=== PATIENT | female | born 1995 | race Caucasian/White ===

== ENCOUNTER 2020-03-06 20:51 | Inpatient (IN) | payer OTHER ==
--- NOTE | 2020-03-06 21:19 | ED Physician Documentation ---
History of Present Illness - Stated complaint Stated Complaint: RT LEG PX/SWELLING - Chief complaint Chief Complaint: Ext Problem - History obtained from History obtained from: Patient (24-year-old female with right lower extremity swelling on control pills had a recent long flight denies hemoptysis or shortness of breath or any history of pulmonary embolism or DVT denies recent surgeries or any trauma. Denies any family history of PE or DVT.) Review of Systems Constitutional: reports: Reviewed and negative Eyes: reports: Reviewed and negative Ears: reports: Reviewed and negative Nose: reports: Reviewed and negative Throat: reports: Reviewed and negative Cardiac: reports: Reviewed and negative Respiratory: reports: Reviewed and negative GI: reports: Reviewed and negative : reports: Reviewed and negative Skin: reports: Reviewed and negative Musculoskeletal: reports: Extremity pain, Extremity swelling Neurologic: reports: Reviewed and negative Psychiatric: reports: Reviewed and negative Endocrine: reports: Reviewed and negative Immunocompromised: reports: Reviewed and negative PD PAST MEDICAL HISTORY - Past Medical History Past Medical History: Yes Cardiovascular: None Respiratory: None Neuro: None Endocrine/Autoimmune: Other GI: None 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 - Past Surgical History Past Surgical History: Yes Ortho: ACL reconstruction - Present Medications Home Medications: Ambulatory Orders Medication Instructions Recorded Confirmed Levetiracetam [Keppra] 500 mg PO DAILY 03/07/20 03/07/20 Levetiracetam [Keppra] 750 mg PO QPM 03/07/20 03/07/20 - Allergies Allergies/Adverse Reactions: Allergies Allergy/AdvReac Type Severity Reaction Status Date / Time No Known Drug Allergies Allergy Verified 03/06/20 21:02 - Social History Does the pt smoke?: No Smoking Status: Never smoker Does the pt drink ETOH?: No Does the pt have substance abuse?: No - Immunizations Immunizations are current?: Yes - POLST Patient has POLST: No PD ED PE NORMAL - Vitals Vital signs reviewed: Yes - General General: Alert and oriented X 3, No acute distress - HEENT HEENT: PERRL - Neck Neck: Supple, no meningeal sign - Cardiac Cardiac: RRR, No murmur - Respiratory Respiratory: Clear bilaterally - Abdomen Abdomen: Normal bowel sounds, Soft, Non tender, Non distended - Derm Derm: Warm and dry - Extremities Extremities: No deformity, Other (Positive for tenderness in the right calf positive for swelling diffusely of the right lower extremity with 1+ edema. Cap refill less than 2 seconds neurovascular intact compartments and soft palpable DP and PT pulses that are 2+ and symmetric.) - Neuro Neuro: Alert and oriented X 3 - Psych Psych: Normal mood, Normal affect Results - Vitals Vitals: Vital Signs - 24 hr 03/06/20 03/06/20 03/06/20 20:59 21:27 21:50 Temperature 36.7 C Heart Rate 64 Respiratory 17 16 16 Rate Blood Pressure 130/85 H O2 Saturation 100 03/06/20 03/06/20 03/06/20 22:40 23:09 23:13 Temperature Heart Rate 79 Respiratory 16 16 16 Rate Blood Pressure 116/77 O2 Saturation 99 Oxygen O2 Source Room air - EKG (time done) 22:41 Rate: Other (no stemi) - Labs Labs: Laboratory Tests 03/06/20 03/06/20 03/06/20 23:00 23:00 23:00 WBC 12.3 H RBC 3.96 L Hgb 13.3 Hct 37.8 MCV 95.5 MCH 33.6 H MCHC 35.2 RDW 12.9 Plt Count 190 MPV 9.1 Neut # (Auto) 9.1 H Lymph # (Auto) 1.9 Stark # (Auto) 0.9 Eos # (Auto) 0.2 Baso # (Auto) 0.1 Absolute Nucleated RBC 0.00 Nucleated RBC % 0.0 PT 15.1 H INR 1.3 H APTT 24.8 L Anti-Xa Level Sodium 135 Potassium 3.3 L Chloride 101 Carbon Dioxide 24 Anion Gap 10.0 BUN 10 Creatinine 0.8 Estimated GFR (MDRD) 90 Glucose 85 Calcium 9.1 Total Bilirubin 0.9 AST 20 ALT 22 Alkaline Phosphatase 54 Troponin I High Sens Total Protein 9.1 H Albumin 3.9 Globulin 5.2 H Albumin/Globulin Ratio 0.8 L Lipase 20 L 03/06/20 03/06/20 23:00 23:00 WBC RBC Hgb Hct MCV MCH MCHC RDW Plt Count MPV Neut # (Auto) Lymph # (Auto) Stark # (Auto) Eos # (Auto) Baso # (Auto) Absolute Nucleated RBC Nucleated RBC % PT INR APTT Anti-Xa Level 0.1 Sodium Potassium Chloride Carbon Dioxide Anion Gap BUN Creatinine Estimated GFR (MDRD) Glucose Calcium Total Bilirubin AST ALT Alkaline Phosphatase Troponin I High Sens 3.1 Total Protein Albumin Globulin Albumin/Globulin Ratio Lipase PD MEDICAL DECISION MAKING - ED course Complexity details: reviewed results, re-evaluated patient, considered differential (dvt.), d/w patient, d/w family, d/w regulatory services consultant (Discussed with interventional radiology at [facility] in [place] they recommend IV heparin and close observation.), other - Consults Consults: Discussed case with (dr. higuera interventional radiologist at [facility]. recommends admit to [facility] for IV heparin. ) Departure - Departure Disposition: [facility] DC/Xfer Clinical Impression: DVT (deep venous thrombosis) Qualifiers: DVT location: lower extremity Affected thrombotic vein of extremity: iliac Chronicity: acute Laterality: right Qualified Code(s): I82.421 - Acute embolism and thrombosis of right iliac vein Condition: Stable Discharge Date/Time: 03/06/20 23:45
[2020-03-06 23:14] LABS: BASOPHILS # (AUTO) 0.1 10^3/uL (0.0-0.1); BASOPHILS % (AUTO) 0.7 %; EOSINOPHILS # (AUTO) 0.2 10^3/uL (0.0-0.7); EOSINOPHILS % (AUTO) 1.5 %; HGB - HEMOGLOBIN 13.3 g/dL (12.0-16.0); LYMPHOCYTES # (AUTO) 1.9 10^3/uL (1.5-3.5); LYMPHOCYTES % (AUTO) 15.8 %; MEAN CORPUSCULAR HEMOGLOBIN 33.6 pg (27.0-31.0); MEAN CORPUSCULAR HGB CONC 35.2 g/dL (32.0-36.0); MEAN CORPUSCULAR VOLUME 95.5 fL (81.0-99.0); MEAN PLATELET VOLUME 9.1 fL (7.9-10.8); MONOCYTES # (AUTO) 0.9 10^3/uL (0.0-1.0); NEUTROPHILS # (AUTO) 9.1 10^3/uL (1.5-6.6); NEUTROPHILS % (AUTO) 74.3 %; PLT - PLATELET COUNT 190 10^3/uL (130-450); RED BLOOD COUNT 3.96 10^6/uL (4.20-5.40); RED CELL DISTRIBUTION WIDTH 12.9 % (12.0-15.0); WHITE BLOOD COUNT 12.3 x10^3/uL (4.8-10.8)
[2020-03-06 23:28] LABS: INR 1.3 (0.8-1.2); PT - PROTHROMBIN TIME 15.1 secs (9.9-12.6)
[2020-03-06] MEDS ORDERED: ONDANSETRON 4 MG/2 ML VIAL IVP PRN (23:28)
[2020-03-06] MEDS ORDERED: SODIUM CHLORIDE FLUSH 0.9% 10 ML SYRINGE IVP PRN (23:28)
[2020-03-06 23:35] LABS: PARTIAL THROMBOPLASTIN TIME 24.8 secs (24.9-33.3)
--- NOTE | 2020-03-06 23:37 | HISTORY & PHYSICAL EXAMINATION ---
Chief Complaint - Chief Complaint Chief Complaint: Right leg swelling and pain. History of Present Illness - Admitted From Admitted From:: Home - History Obtained From Records Reviewed: Yes History obtained from: Patient, ER Physician, EMR - History of Present Illness HPI Comment/Other: This is a 24-year-old female with a past medical history significant for epilepsy on Keppra who presents today complaining of right leg pain and swelling. She noted that this morning she developed right hip pain and noticed that her leg progressively became more swollen and painful throughout the day. She is visiting from [place] and flew here this past . She did connect in [place]. She reports no numbness or tingling in her lower extremity. She denies any chest pain, dyspnea, palpitations. She reports no prior history of DVT. She believes her grandfather had a DVT but does not believe her parents have. She is on on OCP, Lillow, for control which she has been taking for numerous years now. She is a non-smoker. She reports no prior history of DVT. She did have ACL reconstruction about 3 years ago in her right knee. She re ports being diagnosed with pyelonephritis 1 week ago and she is currently taking Keflex and she has 1 more week of treatment. In the emerge department, she was found to be afebrile temperature of 36.7 C. Her heart rate was 64. Her blood pressure was 130/85. She was not tachypneic and saturating 100% on room air. He underwent a Doppler of the right lower extremity which showed extensive DVT from the right iliac distally. The emergency department provider did speak with intervention radiology who recommended 48 hours of heparin and if there is no improvement then to transfer to higher level of care for further management. Given the above findings, medicine was consulted for admission. 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 Her parents and siblings are healthy. Social History Notes: She is visiting from [place], [place]. She denies any history of smoking, alcohol, drug use. - Substance History Use: Uses substance without health or social issues: NONE - POLST Patient has POLST: No Meds/Allgy - Home Medications Home Medications: Ambulatory Orders Medication Instructions Recorded Confirmed Cephalexin [Keflex] 500 mg PO BID 03/07/20 03/07/20 Levetiracetam [Keppra] 500 mg PO DAILY 03/07/20 03/07/20 Levetiracetam [Keppra] 750 mg PO QPM 03/07/20 03/07/20 Levonorgestrel-Ethin Estradiol 1 each PO DAILY 03/07/20 03/07/20 [Lillow-28 Tablet] - Allergies Allergies/Adverse Reactions: Allergies Allergy/AdvReac Type Severity Reaction Status Date / Time No Known Drug Allergies Allergy Verified 03/06/20 21:02 Review of Systems - Constitutional Constitutional: denies: Fatigue, Fever, Chills, Weakness, Poor appetite - Ears, Nose & Throat Ears, Nose & Throat: denies: Nasal discharge, Nasal congestion, Postnasal d rainage, Sore throat - Cardiovascular Cariovascular: reports: Edema. denies: Palpitations, Chest pain, Exertional dyspnea, Decr. exercise tolerance - Respiratory Respiratory: denies: Cough, SOB at rest, SOB with exertion - Gastrointestinal Gastrointestinal: denies: Abdominal pain, Nausea, Vomiting - Genitourinary Genitourinary: denies: Dysuria, Frequency, Urgency, Hematuria - Musculoskeletal Musculoskeletal: reports: Muscle pain - Integumentary Integumentary: denies: Rash - Neurological Neurological: denies: General weakness, Focal weakness, Numbness - Hematologic/Lymphatic Hematologic/Lymphatic: denies: Anemia, Bleeding tendencies - All Other Systems All Other Systems: reports: Reviewed and negative Prior Level of Functionality: She is independent with her ADL's. Exam - Vital Signs Reviewed Vital Signs: Yes Vital Signs: Vital Signs x48h Temp Pulse Resp BP Pulse Ox 03/06/20 23:13 79 16 116/77 99 03/06/20 23:09 16 03/06/20 22:40 16 03/06/20 21:50 16 03/06/20 21:27 16 03/06/20 20:59 36.7 C 64 17 130/85 H 100 - Physical Exam General Appearance: positive: No acute distress, Alert Eyes Bilateral: positive: Normal inspection, Conjunctivae nml ENT: positive: ENT inspection nml Neck: positive: Nml inspection Respiratory: positive: No respiratory distress. negative: Wheezes, Rales Cardiovascular: positive: Regular rate & rhythm, No murmur. negative: Tachycardia, Bradycardia, Systolic murmur Abdomen: positive: Non-tender, No distention. negative: Tenderness, Guarding, Rebound Skin: positive: Warm, Dry Extremities: positive: Pedal edema (She has trace pitting edema in her right lower extremity throughout the leg. Her right lower extremity is larger compared to the left. She does have mild calf tenderness. The right lower extremity is also warm to touch.), Calf tenderness, Other (No evidence of phlegmasia cerulea dolens.) Neurologic/Psychiatric: positive: Oriented x3, Motor nml. negative: Disoriented to person, Disoriented to place, Disoriented to time Conclusion/Plan - Problem List (1) Deep vein thrombosis (DVT) of right lower extremity Conclusion/Plan: She has extensive DVT in he right lower extremity seen from the right iliac vein to the proximal right posterior tibial vein. She has risk factors including control use and recent travel given her flight from [place]. The emergency department provider spoke with interventional radiology who recommended 48 hours of IV heparin and if there is no improvement with that to transfer to higher level of care for further evaluation. There is currently low suspicion for pulmonary embolism given she is not hypoxic or tachycardic. Her troponin is also normal. We will treat her empirically with IV heparin. No SCDs. Pain control with Tylenol and oxycodone as needed. She will need hypercoagulable work-up on outpatient basis. Qualifiers: Chronicity: acute (2) Epilepsy Conclusion/Plan: Stable. We will continue her home dose of Keppra. (3) Pyelonephritis Conclusion/Plan: She was probably diagnosed with pyelonephritis 1 week ago and is on Keflex which we will continue. - Lab Results Lab results reviewed: Yes Fish Bones: 03/06/20 23:00 03/06/20 23:00 - Diagnostic Imaging Results Diagnostic Imaging Results: positive: Prelim report reviewed Core Measures - Anticipated LOS I expect patient to be DC'd or transferred within 96 hours.: Yes - Issues Hospital Issues and Management Plan: 24-year-old female present with right lower extremity pain and edema found to have extensive right lower extremity DVT. Will admit for for 8 hours of IV heparin. If she does not improve with anticoagulation, will need transfer to higher level of care for possible localized thrombolytics. - DVT/VTE - Prophylaxis VTE/DVT Device ordered at admit?: No Not Ordered - Medical Reason: Contraindicated VTE/DVT Prophylaxis med ordered at admit?: Yes
[2020-03-06 23:49] LABS: ALBUMIN 3.9 g/dL (3.2-5.5); ALBUMIN/GLOBULIN RATIO 0.8 (1.0-2.2); BILIRUBIN,TOTAL 0.9 mg/dL (0.2-1.0); CALCIUM 9.1 mg/dL (8.5-10.3); CREATININE 0.8 mg/dL (0.4-1.0); TOTAL PROTEIN 9.1 g/dL (6.7-8.2)
[2020-03-07] MEDS ORDERED: levETIRAcetam 250 MG TABLET PO STA (00:06)
[2020-03-07] MEDS ORDERED: POTASSIUM CHLORIDE 20 MEQ TABLET PO ONE (00:10)
[2020-03-07] MEDS: oxyCODONE 5 MG TABLET PO PRN ×5 (00:37→22:15)
[2020-03-07] MEDS: HEPARIN 25000UNITS/500ML (D5W) 25,000 UNIT/500 ML BAG IV SCH (01:47)
[2020-03-07] MEDS: SODIUM CHLORIDE FLUSH 0.9% 10 ML SYRINGE IVP SCH ×3 (01:52→17:16)
[2020-03-07] MEDS ORDERED: cephALEXin 250 MG CAPSULE PO SCH (06:00)
--- NOTE | 2020-03-07 07:36 | PHARMACY PROGRESS NOTE ---
- Best Possible Medication History Admit Date and Time: 03/06/20 8869 Processed by: Pharmacy Medication History completed: Yes Secondary Source(s): Pharmacy records, Insurance records As the person ultimately responsible for medication therapy, providers are able to order a medication from an existing home medication list in [facility] via the "Reconcile Routine" prior to Confirmation of that medication by direct support staff. Such practice is discouraged except when the physician, in their clinical judgment, deems that a medical need exists for a medication without regard to previous use.
[2020-03-07] MEDS ORDERED: cephALEXin 250 MG CAPSULE PO ONE (08:00)
[2020-03-07 08:15] LABS: BASOPHILS # (AUTO) 0.1 10^3/uL (0.0-0.1); BASOPHILS % (AUTO) 0.6 %; EOSINOPHILS # (AUTO) 0.4 10^3/uL (0.0-0.7); EOSINOPHILS % (AUTO) 3.6 %; HGB - HEMOGLOBIN 11.5 g/dL (12.0-16.0); LYMPHOCYTES % (AUTO) 20.6 %; MEAN CORPUSCULAR HEMOGLOBIN 32.7 pg (27.0-31.0); MEAN CORPUSCULAR HGB CONC 33.8 g/dL (32.0-36.0); MEAN CORPUSCULAR VOLUME 96.6 fL (81.0-99.0); MEAN PLATELET VOLUME 9.1 fL (7.9-10.8); MONOCYTES # (AUTO) 0.7 10^3/uL (0.0-1.0); MONOCYTES % (AUTO) 7.6 %; NEUTROPHILS # (AUTO) 6.5 10^3/uL (1.5-6.6); NEUTROPHILS % (AUTO) 67.1 %; PLT - PLATELET COUNT 162 10^3/uL (130-450); RED BLOOD COUNT 3.52 10^6/uL (4.20-5.40); RED CELL DISTRIBUTION WIDTH 13.2 % (12.0-15.0); WHITE BLOOD COUNT 9.7 x10^3/uL (4.8-10.8)
[2020-03-07 08:26] LABS: CALCIUM 8.8 mg/dL (8.5-10.3); CREATININE 0.9 mg/dL (0.4-1.0); MAGNESIUM 1.8 mg/dL (1.7-2.8)
--- NOTE | 2020-03-07 08:49 | Ultrasound Report ---
PROCEDURE: Duplex Ext Veins Right INDICATIONS: right lower extremity pain and swelling TECHNIQUE: Real-time imaging, as well as color and pulse Doppler interrogation, were performed of the lower extr emity deep veins from the inguinal ligament to the popliteal fossa. COMPARISON: None. FINDINGS: Occlusive thrombus identified in the right common femoral vein, superficial femoral vein, p opliteal vein, and posterior tibial veins. Right common iliac vein contains occlusive thrombus. Addit ional thrombus identified in the greater saphenous vein of the superficial venous system. Color and p ulse Doppler absence normal phasic intraluminal flow. IMPRESSION: Abnormal study demonstrating extensive right lower extremity occlusive deep vein thrombo sis. Reviewed by: Noemi Zuniga MD, PhD on 03/07/2020 8:47 AM PDT Approved by: Noemi Zuniga MD, PhD on 03/07/2020 8:47 AM PDT Station ID: [id number]
--- NOTE | 2020-03-07 09:06 | XRAY Report ---
PROCEDURE: Chest 1 View X-Ray INDICATIONS: sob TECHNIQUE: One view of the chest was acquired. COMPARISON: None FINDINGS: Surgical changes and devices: None. Lungs and pleura: No pleural effusions or pneumothorax. Lungs are clear. Mediastinum: Mediastinal contours appear normal. Heart size is normal. Bones and chest wall: No suspicious bony lesions. Overlying soft tissues appear unremarkable. IMPRESSION: No acute cardiopulmonary disease process. Reviewed by: Noemi Zuniga MD, PhD on 03/07/2020 9:05 AM PDT Approved by: Noemi Zuniga MD, PhD on 03/07/2020 9:05 AM PDT Station ID: [id number]
[2020-03-07] MEDS: levETIRAcetam 250 MG TABLET PO SCH ×2 (09:10→20:17)
[2020-03-07 11:26] LABS: BILIRUBIN,URINE NEGATIVE (NEGATIVE); GLUCOSE, URINE (UA) NEGATIVE (NEGATIVE); KETONES,URINE (UA) NEGATIVE (NEGATIVE); LEUKOCYTE ESTERASE, URINE NEGATIVE (NEGATIVE); NITRITE,URINE NEGATIVE (NEGATIVE); OCCULT BLOOD,URINE NEGATIVE (NEGATIVE); PROTEIN,URINE NEGATIVE (NEGATIVE); UROBILINOGEN,URINE 1 (NORMAL) E.U./dL (NORMAL)
[2020-03-07 11:28] LABS: CLARITY,URINE CLEAR (CLEAR); HCG UR QUAL NEGATIVE
--- NOTE | 2020-03-07 11:50 | PROVIDER PROGRESS NOTE ---
Subjective - Prog Note Date Prog Note Date: 03/07/20 Prog Note Time: 11:49 - Subjective Pt reports feeling: No change Subjective: she has no chest pain, sob. we discussed case and recommendations. all questions answered. Current Medications - Current Medications Current Medications: Active Medications Acetaminophen (Tylenol) 650 mg PO Q4HR PRN PRN Reason: Pain 1 to 4 Cephalexin (Keflex) 500 mg PO BID [facility] Heparin Sodium (Porcine) () 1,450 unit 25 unit/kg (1450 unit) IVP Q6H PRN PRN Reason: ANTI-XA < 0.2 Heparin Sodium/Dextrose () 25,000 unit in 500 mls @ 17 mls/hr IV .[id number] [facility]; Protocol Last Admin: 03/07/20 01:47 Dose: 17.6 mls/hr Documented by: Levetiracetam (Keppra) 500 mg PO DAILY [facility] Last Admin: 03/07/20 09:10 Dose: 500 mg Documented by: Levetiracetam (Keppra) 750 mg PO QPM [facility] Ondansetron HCl (Zofran Inj) 4 mg IVP Q6HR PRN PRN Reason: Nausea / Vomiting Oxycodone HCl (Roxicodone) 5 mg PO Q4HR PRN PRN Reason: Pain 5 to 7 Last Admin: 03/07/20 11:07 Dose: 5 mg Documented by: Sodium Chloride (Normal Saline Flush 0.9%) 10 ml IVP PRN PRN PRN Reason: NEEDED PER PROVIDER ORDERS Sodium Chloride (Normal Saline Flush 0.9%) 10 ml IVP 0100,0900,1700 [facility] Last Admin: 03/07/20 10:32 Dose: Not Given Documented by: Cephalexin [Keflex] 500 mg PO BID 03/07/20 Levetiracetam [Keppra] 500 mg PO DAILY 03/07/20 Levetiracetam [Keppra] 750 mg PO QPM 03/07/20 Levonorgestrel-Ethin Estradiol [Lillow-28 Tablet] 1 each PO DAILY 03/07/20 Objective - Vital Signs/Intake & Output Reviewed Vital Signs: Yes Vital Signs: Vital Signs x48h Temp Pulse Resp BP Pulse Ox 03/07/20 08:10 36.8 C 77 14 133/89 H 97 07/27/20 04:53 36.6 C 91 20 113/63 97 Intake & Output: Intake & Output 03/04/20 03/05/20 03/06/20 03/07/20 23:59 23:59 23:59 23:59 Intake Total 500 Balance 500 - Objective General Appearance: positive: No acute distress, Alert Eyes Bilateral: positive: PERRL, EOMI ENT: positive: Pharynx nml Respiratory: positive: Chest non-tender. negative: Wheezes, Rales, Rhonchi Cardiovascular: positive: Regular rate & rhythm. negative: Systolic murmur, Gallop/S4, Friction rub Abdomen: positive: Non-tender, No organomegaly, Nml bowel sounds, No distention Skin: positive: Warm, Dry Neurologic/Psychiatric: positive: Oriented x3, CN's nml (2-12), Motor nml, Sensation nml - Lab Results Fish Bones: 03/07/20 08:10 03/07/20 08:10 Other Labs: Lab Results x24hrs 03/07/20 03/07/20 03/07/20 Range/Units 10:55 08:10 08:10 WBC 9.7 (4.8-10.8) x10^3/uL RBC 3.52 L (4.20-5.40) 10^6/uL Hgb 11.5 L (12.0-16.0) g/dL Hct 34.0 L (37.0-47.0) % MCV 96.6 (81.0-99.0) fL MCH 32.7 H (27.0-31.0) pg MCHC 33.8 (32.0-36.0) g/dL RDW 13.2 (12.0-15.0) % Plt Count 162 (130-450) 10^3/uL MPV 9.1 (7.9-10.8) fL Neut # (Auto) 6.5 (1.5-6.6) 10^3/uL Lymph # (Auto) 2.0 (1.5-3.5) 10^3/uL Sequoyah # (Auto) 0.7 (0.0-1.0) 10^3/uL Eos # (Auto) 0.4 (0.0-0.7) 10^3/uL Baso # (Auto) 0.1 (0.0-0.1) 10^3/uL Absolute Nucleated RBC 0.00 x10^3/uL Nucleated RBC % 0.0 /100WBC PT (9.9-12.6) secs INR (0.8-1.2) APTT (24.9-33.3) secs Anti-Xa Level ( - 0.7) U/mL Sodium 135 (135-145) mmol/L Potassium 3.3 L (3.5-5.0) mmol/L Chloride 101 (101-111) mmol/L Carbon Dioxide 25 (21-32) mmol/L Anion Gap 9.0 (6-13) BUN 13 (6-20) mg/dL Creatinine 0.9 (0.4-1.0) mg/dL Estimated GFR (MDRD) 78 L (>89) Glucose 117 H (70-100) mg/dL Calcium 8.8 (8.5-10.3) mg/dL Magnesium 1.8 (1.7-2.8) mg/dL Total Bilirubin (0.2-1.0) mg/dL AST (10-42) IU/L ALT (10-60) IU/L Alkaline Phosphatase (42-121) IU/L Troponin I High Sens (2.3-14.8) ng/L Total Protein (6.7-8.2) g/dL Albumin (3.2-5.5) g/dL Globulin (2.1-4.2) g/dL Albumin/Globulin Ratio (1.0-2.2) Lipase (22-51) U/L Urine Color DARK YELLOW Urine Clarity CLEAR (CLEAR) Urine pH 6.0 (5.0-7.5) PH Ur Specific [place] >=1.030 H (1.002-1.030) Urine Protein NEGATIVE (NEGATIVE) mg/dL Urine Glucose (UA) NEGATIVE (NEGATIVE) mg/dL Urine Ketones NEGATIVE (NEGATIVE) mg/dL Urine Occult Blood NEGATIVE (NEGATIVE) Urine Nitrite NEGATIVE (NEGATIVE) Urine Bilirubin NEGATIVE (NEGATIVE) Urine Urobilinogen 1 (NORMAL) (NORMAL) E.U./dL Ur Leukocyte Esterase NEGATIVE (NEGATIVE) Ur Microscopic Review NOT INDICATED Urine Culture Comments NOT INDICATED Urine HCG, Qual NEGATIVE 03/07/20 03/06/20 03/06/20 Range/Units 08:10 23:00 23:00 WBC (4.8-10.8) x10^3/uL RBC (4.20-5.40) 10^6/uL Hgb (12.0-16.0) g/dL Hct (37.0-47.0) % MCV (81.0-99.0) fL MCH (27.0-31.0) pg MCHC (32.0-36.0) g/dL RDW (12.0-15.0) % Plt Count (130-450) 10^3/uL MPV (7.9-10.8) fL Neut # (Auto) (1.5-6.6) 10^3/uL Lymph # (Auto) (1.5-3.5) 10^3/uL Sequoyah # (Auto) (0.0-1.0) 10^3/uL Eos # (Auto) (0.0-0.7) 10^3/uL Baso # (Auto) (0.0-0.1) 10^3/uL Absolute Nucleated RBC x10^3/uL Nucleated RBC % /100WBC PT (9.9-12.6) secs INR (0.8-1.2) APTT (24.9-33.3) secs Anti-Xa Level 0.3 0.1 ( - 0.7) U/mL Sodium (135-145) mmol/L Potassium (3.5-5.0) mmol/L Chloride (101-111) mmol/L Carbon Dioxide (21-32) mmol/L Anion Gap (6-13) BUN (6-20) mg/dL Creatinine (0.4-1.0) mg/dL Estimated GFR (MDRD) (>89) Glucose (70-100) mg/dL Calcium (8.5-10.3) mg/dL Magnesium (1.7-2.8) mg/dL Total Bilirubin (0.2-1.0) mg/dL AST (10-42) IU/L ALT (10-60) IU/L Alkaline Phosphatase (42-121) IU/L Troponin I High Sens 3.1 (2.3-14.8) ng/L Total Protein (6.7-8.2) g/dL Albumin (3.2-5.5) g/dL Globulin (2.1-4.2) g/dL Albumin/Globulin Ratio (1.0-2.2) Lipase (22-51) U/L Urine Color Urine Clarity (CLEAR) Urine pH (5.0-7.5) PH Ur Specific [place] (1.002-1.030) Urine Protein (NEGATIVE) mg/dL Urine Glucose (UA) (NEGATIVE) mg/dL Urine Ketones (NEGATIVE) mg/dL Urine Occult Blood (NEGATIVE) Urine Nitrite (NEGATIVE) Urine Bilirubin (NEGATIVE) Urine Urobilinogen (NORMAL) E.U./dL Ur Leukocyte Esterase (NEGATIVE) Ur Microscopic Review Urine Culture Comments Urine HCG, Qual 03/06/20 03/06/20 03/06/20 Range/Units 23:00 23:00 23:00 WBC 12.3 H (4.8-10.8) x10^3/uL RBC 3.96 L (4.20-5.40) 10^6/uL Hgb 13.3 (12.0-16.0) g/dL Hct 37.8 (37.0-47.0) % MCV 95.5 (81.0-99.0) fL MCH 33.6 H (27.0-31.0) pg MCHC 35.2 (32.0-36.0) g/dL RDW 12.9 (12.0-15.0) % Plt Count 190 (130-450) 10^3/uL MPV 9.1 (7.9-10.8) fL Neut # (Auto) 9.1 H (1.5-6.6) 10^3/uL Lymph # (Auto) 1.9 (1.5-3.5) 10^3/uL [place] # (Auto) 0.9 (0.0-1.0) 10^3/uL Eos # (Auto) 0.2 (0.0-0.7) 10^3/uL Baso # (Auto) 0.1 (0.0-0.1) 10^3/uL Absolute Nucleated RBC 0.00 x10^3/uL Nucleated RBC % 0.0 /100WBC PT 15.1 H (9.9-12.6) secs INR 1.3 H (0.8-1.2) APTT 24.8 L (24.9-33.3) secs Anti-Xa Level ( - 0.7) U/mL Sodium 135 (135-145) mmol/L Potassium 3.3 L (3.5-5.0) mmol/L Chloride 101 (101-111) mmol/L Carbon Dioxide 24 (21-32) mmol/L Anion Gap 10.0 (6-13) BUN 10 (6-20) mg/dL Creatinine 0.8 (0.4-1.0) mg/dL Estimated GFR (MDRD) 90 (>89) Glucose 85 (70-100) mg/dL Calcium 9.1 (8.5-10.3) mg/dL Magnesium (1.7-2.8) mg/dL Total Bilirubin 0.9 (0.2-1.0) mg/dL AST 20 (10-42) IU/L ALT 22 (10-60) IU/L Alkaline Phosphatase 54 (42-121) IU/L Troponin I High Sens (2.3-14.8) ng/L Total Protein 9.1 H (6.7-8.2) g/dL Albumin 3.9 (3.2-5.5) g/dL Globulin 5.2 H (2.1-4.2) g/dL Albumin/Globulin Ratio 0.8 L (1.0-2.2) Lipase 20 L (22-51) U/L Urine Color Urine Clarity (CLEAR) Urine pH (5.0-7.5) PH Ur Specific [place] (1.002-1.030) Urine Protein (NEGATIVE) mg/dL Urine Glucose (UA) (NEGATIVE) mg/dL Urine Ketones (NEGATIVE) mg/dL Urine Occult Blood (NEGATIVE) Urine Nitrite (NEGATIVE) Urine Bilirubin (NEGATIVE) Urine Urobilinogen (NORMAL) E.U./dL Ur Leukocyte Esterase (NEGATIVE) Ur Microscopic Review Urine Culture Comments Urine HCG, Qual ABX Reporting Has patient been on IV antibiotics over the past 48 hours?: Yes Assessment/Plan - Problem List (1) Deep vein thrombosis (DVT) of right lower extremity Impression: She has extensive DVT in he right lower extremity seen from the right iliac vein to the proximal right posterior tibial vein. She has risk factors including control use and recent travel given her flight from [place]. The emergency department provider spoke with interventional radiology who recommended 48 hours of IV heparin and if there is no improvement with that to transfer to higher level of care for further evaluation. There is currently low suspicion for pulmonary embolism given she is not hypoxic or tachycardic. Her troponin is also normal. We will treat her empirically with IV heparin for 48 hours and then transition to po Eliquis. No SCDs. Pain control with Tylenol and oxycodone as needed. She will need hypercoagulable work-up on outpatient basis. All of this was discussed and she will followup with her PCP when she returns to [place]. Qualifiers: Chronicity: acute (2) Epilepsy Conclusion/Plan: Stable. We have continued her home dose of Keppra. (3) Pyelonephritis Conclusion/Plan: She was probably diagnosed with pyelonephritis 1 week ago and is on Keflex which we have continued.
[2020-03-07] MEDS: ACETAMINOPHEN 325 MG TABLET PO PRN ×2 (17:10→22:16)
[2020-03-07] MEDS: cephALEXin 250 MG CAPSULE PO SCH (20:16)
[2020-03-08] MEDS: SODIUM CHLORIDE FLUSH 0.9% 10 ML SYRINGE IVP SCH ×4 (00:54→23:30)
[2020-03-08] MEDS: ACETAMINOPHEN 325 MG TABLET PO PRN ×5 (02:20→20:22)
[2020-03-08] MEDS: oxyCODONE 5 MG TABLET PO PRN ×5 (02:20→20:23)
[2020-03-08] MEDS: HEPARIN 25000UNITS/500ML (D5W) 25,000 UNIT/500 ML BAG IV SCH (04:07)
[2020-03-08 04:15] LABS: BASOPHILS # (AUTO) 0.1 10^3/uL (0.0-0.1); BASOPHILS % (AUTO) 0.7 %; EOSINOPHILS # (AUTO) 0.4 10^3/uL (0.0-0.7); EOSINOPHILS % (AUTO) 3.6 %; HGB - HEMOGLOBIN 11.6 g/dL (12.0-16.0); LYMPHOCYTES # (AUTO) 2.2 10^3/uL (1.5-3.5); LYMPHOCYTES % (AUTO) 20.9 %; MEAN CORPUSCULAR VOLUME 97.2 fL (81.0-99.0); MEAN PLATELET VOLUME 9.4 fL (7.9-10.8); MONOCYTES # (AUTO) 0.8 10^3/uL (0.0-1.0); MONOCYTES % (AUTO) 7.3 %; NEUTROPHILS # (AUTO) 7.1 10^3/uL (1.5-6.6); NEUTROPHILS % (AUTO) 66.7 %; PLT - PLATELET COUNT 156 10^3/uL (130-450); RED BLOOD COUNT 3.51 10^6/uL (4.20-5.40); RED CELL DISTRIBUTION WIDTH 13.1 % (12.0-15.0); WHITE BLOOD COUNT 10.6 x10^3/uL (4.8-10.8)
[2020-03-08] MEDS ORDERED: POTASSIUM CHLORIDE 20 MEQ TABLET PO ONE (08:28)
[2020-03-08] MEDS ORDERED: cephALEXin 250 MG CAPSULE PO SCH (09:00)
--- NOTE | 2020-03-08 09:20 | PROVIDER PROGRESS NOTE ---
Subjective - Prog Note Date Prog Note Date: 03/08/20 - Subjective Pt reports feeling: Improved Subjective: Patient report she has no right lower extremity pain, she have no issue to walk, she ate all her breakfast, she denies any fever, chilly or chest pain or shortness of breath, cough. She reported she come to the hospital on the night of March 06. Heparin started on March 07, 27. Anti-Xa level is still not reached to therapeutic level yet, now it is 0.4, Therapeutic range is 0.5-1.2. Current Medications - Current Medications Current Medications: Active Medications Acetaminophen (Tylenol) 650 mg PO Q4HR PRN PRN Reason: Pain 1 to 4 Last Admin: 03/08/20 05:22 Dose: 650 mg Documented by: Cephalexin (Keflex) 500 mg PO BID [facility] Last Admin: 03/07/20 20:16 Dose: 500 mg Documented by: Heparin Sodium (Porcine) () 1,450 unit 25 unit/kg (1450 unit) IVP Q6H PRN PRN Reason: ANTI-XA < 0.2 Heparin Sodium/Dextrose () 25,000 unit in 500 mls @ 17 mls/hr IV .[id number] [facility]; Protocol Last Admin: 03/08/20 04:07 Dose: 22.2 mls/hr Documented by: Levetiracetam (Keppra) 500 mg PO DAILY [facility] Last Admin: 03/07/20 09:10 Dose: 500 mg Documented by: Levetiracetam (Keppra) 750 mg PO QPM [facility] Last Admin: 03/07/20 20:17 Dose: 750 mg Documented by: Ondansetron HCl (Zofran Inj) 4 mg IVP Q6HR PRN PRN Reason: Nausea / Vomiting Oxycodone HCl (Roxicodone) 5 mg PO Q4HR PRN PRN Reason: Pain 5 to 7 Last Admin: 03/08/20 05:22 Dose: 5 mg Documented by: Polyethylene Glycol (Miralax) 17 gm PO DAILY [facility] Sodium Chloride (Normal Saline Flush 0.9%) 10 ml IVP PRN PRN PRN Reason: NEEDED PER PROVIDER ORDERS Sodium Chloride (Normal Saline Flush 0.9%) 10 ml IVP 0100,0900,1700 [facility] Last Admin: 03/08/20 00:54 Dose: Not Given Documented by: Cephalexin [Keflex] 500 mg PO BID 03/07/20 Levetiracetam [Keppra] 500 mg PO DAILY 03/07/20 Levetiracetam [Keppra] 750 mg PO QPM 03/07/20 Levonorgestrel-Ethin Estradiol [Lillow-28 Tablet] 1 each PO DAILY 03/07/20 Objective - Vital Signs/Intake & Output Vital Signs: Vital Signs x48h Temp Pulse Resp BP Pulse Ox 03/08/20 07:55 37.1 C 81 16 104/49 L 95 03/08/20 04:33 37.2 C 90 16 111/61 92 Intake & Output: Intake & Output 03/05/20 03/06/20 03/07/20 03/08/20 23:59 23:59 23:59 23:59 Intake Total 1683.960 516.04 Balance 1683.960 516.04 - Objective General Appearance: positive: No acute distress, Alert. negative: Lethargic Eyes Bilateral: positive: Normal inspection, PERRL, No lid inflammation ENT: positive: ENT inspection nml, Pharynx nml, No signs of dehydration. n egative: Purulent nasal drainage, Dry mucous membranes Neck: positive: Nml inspection, Thyroid nml, Trachea midline. negative: Thyromegaly, Stiff neck, Tracheal deviation Respiratory: positive: Chest non-tender, No respiratory distress, Breath sounds nml. negative: Wheezes, Rales, Rhonchi Cardiovascular: positive: Regular rate & rhythm, No murmur, No gallop. negative: Irregularly irregular, Tachycardia, Bradycardia, Systolic murmur, Diastolic murmur Peripheral Pulses: 2+ Radial (R), 2+ Radial (L), 2+ Dorsalis pedis (R), 2+ Dorsalis pedis (L) Abdomen: positive: Non-tender, No organomegaly, Nml bowel sounds, No distention. negative: Tenderness, Guarding, Rebound Back: positive: Nml inspection. negative: CVA tenderness (R), CVA tenderness (L) Skin: positive: Color nml, No rash, Warm, Dry. negative: Cyanosis, Diaphoresis, Pallor Extremities: positive: Non-tender, Full ROM, Nml appearance, Other (there is no tenderness, swelling or pain on palpitation on right lower extremity and calf). negative: Calf tenderness, Neetu's sign/cords Neurologic/Psychiatric: positive: Oriented x3, Motor nml, Sensation nml, Mood/affect nml. negative: Weakness, Sensory loss, Facial droop, Slurred/abnml speech, Depressed mood/affect - Lab Results Fish Bones: 03/08/20 04:09 03/07/20 08:10 Other Labs: Lab Results x24hrs 03/08/20 03/08/20 03/07/20 Range/Units 04:09 04:09 22:08 WBC 10.6 (4.8-10.8) x10^3/uL RBC 3.51 L (4.20-5.40) 10^6/uL Hgb 11.6 L (12.0-16.0) g/dL Hct 34.1 L (37.0-47.0) % MCV 97.2 (81.0-99.0) fL MCH 33.0 H (27.0-31.0) pg MCHC 34.0 (32.0-36.0) g/dL RDW 13.1 (12.0-15.0) % Plt Count 156 (130-450) 10^3/uL MPV 9.4 (7.9-10.8) fL Neut # (Auto) 7.1 H (1.5-6.6) 10^3/uL Lymph # (Auto) 2.2 (1.5-3.5) 10^3/uL Oliver # (Auto) 0.8 (0.0-1.0) 10^3/uL Eos # (Auto) 0.4 (0.0-0.7) 10^3/uL Baso # (Auto) 0.1 (0.0-0.1) 10^3/uL Absolute Nucleated RBC 0.00 x10^3/uL Nucleated RBC % 0.0 /100WBC Anti-Xa Level 0.4 0.2 ( - 0.7) U/mL Urine Color Urine Clarity (CLEAR) Urine pH (5.0-7.5) PH Ur Specific [place] (1.002-1.030) Urine Protein (NEGATIVE) mg/dL Urine Glucose (UA) (NEGATIVE) mg/dL Urine Ketones (NEGATIVE) mg/dL Urine Occult Blood (NEGATIVE) Urine Nitrite (NEGATIVE) Urine Bilirubin (NEGATIVE) Urine Urobilinogen (NORMAL) E.U./dL Ur Leukocyte Esterase (NEGATIVE) Ur Microscopic Review Urine Culture Comments Urine HCG, Qual 03/07/20 03/07/20 Range/Units 16:12 10:55 WBC (4.8-10.8) x10^3/uL RBC (4.20-5.40) 10^6/uL Hgb (12.0-16.0) g/dL Hct (37.0-47.0) % MCV (81.0-99.0) fL MCH (27.0-31.0) pg MCHC (32.0-36.0) g/dL RDW (12.0-15.0) % Plt Count (130-450) 10^3/uL MPV (7.9-10.8) fL Neut # (Auto) (1.5-6.6) 10^3/uL Lymph # (Auto) (1.5-3.5) 10^3/uL Oliver # (Auto) (0.0-1.0) 10^3/uL Eos # (Auto) (0.0-0.7) 10^3/uL Baso # (Auto) (0.0-0.1) 10^3/uL Absolute Nucleated RBC x10^3/uL Nucleated RBC % /100WBC Anti-Xa Level 0.2 ( - 0.7) U/mL Urine Color DARK YELLOW Urine Clarity CLEAR (CLEAR) Urine pH 6.0 (5.0-7.5) PH Ur Specific [place] >=1.030 H (1.002-1.030) Urine Protein NEGATIVE (NEGATIVE) mg/dL Urine Glucose (UA) NEGATIVE (NEGATIVE) mg/dL Urine Ketones NEGATIVE (NEGATIVE) mg/dL Urine Occult Blood NEGATIVE (NEGATIVE) Urine Nitrite NEGATIVE (NEGATIVE) Urine Bilirubin NEGATIVE (NEGATIVE) Urine Urobilinogen 1 (NORMAL) (NORMAL) E.U./dL Ur Leukocyte Esterase NEGATIVE (NEGATIVE) Ur Microscopic Review NOT INDICATED Urine Culture Comments NOT INDICATED Urine HCG, Qual NEGATIVE ABX Reporting Has patient been on IV antibiotics over the past 48 hours?: Yes Sepsis Event Note (H) - Evaluation Current Stage of Sepsis: Ruled out Assessment/Plan - Problem List (1) Deep vein thrombosis (DVT) of right lower extremity Impression: Patient clinically is stable, she denies cough, shortness of breathing or respiratory distress. she is not hypoxic or tachycardic. Her troponin is also normal. she denies right lower extremity or calf pain. at Right lower extremity there is no tenderness or swelling at calf. Patient will have 48 hours heparin on tomorrow early in the morning. pt's Anti-Xa is only 0.4 now, Still not reach therapeutic dosage yet. Continue heparin until tomorrow morning, Then change to oral Eliquis. Pain control with Tylenol and oxycodone as needed. Advised the patient may follow-up with her PCP to have hypercoagulation laboratory work-up. (2) Epilepsy Conclusion/Plan: Stable. We will check serum concentration of Keppra, and continued her home dose of Keppra. (3) Pyelonephritis Conclusion/Plan: Will continue Keflex, She was probably diagnosed with pyelonephritis 1 week ago and was on Keflex.
[2020-03-08] MEDS: levETIRAcetam 250 MG TABLET PO SCH ×2 (09:27→20:29)
[2020-03-08] MEDS: polyethylene glycoL 3350 17 GM PACKET PO SCH (09:27)
[2020-03-08] MEDS: cephALEXin 250 MG CAPSULE PO SCH ×2 (09:27→20:29)
[2020-03-09] MEDS: ACETAMINOPHEN 325 MG TABLET PO PRN ×4 (00:34→15:35)
[2020-03-09] MEDS: oxyCODONE 5 MG TABLET PO PRN ×4 (00:34→15:35)
[2020-03-09] MEDS: HEPARIN 25000UNITS/500ML (D5W) 25,000 UNIT/500 ML BAG IV SCH (02:27)
[2020-03-09 05:53] LABS: BASOPHILS # (AUTO) 0.1 10^3/uL (0.0-0.1); BASOPHILS % (AUTO) 0.4 %; EOSINOPHILS # (AUTO) 0.3 10^3/uL (0.0-0.7); EOSINOPHILS % (AUTO) 2.4 %; HGB - HEMOGLOBIN 11.1 g/dL (12.0-16.0); LYMPHOCYTES # (AUTO) 2.3 10^3/uL (1.5-3.5); LYMPHOCYTES % (AUTO) 19.5 %; MEAN CORPUSCULAR HEMOGLOBIN 32.5 pg (27.0-31.0); MEAN CORPUSCULAR HGB CONC 33.3 g/dL (32.0-36.0); MEAN CORPUSCULAR VOLUME 97.4 fL (81.0-99.0); MEAN PLATELET VOLUME 9.8 fL (7.9-10.8); MONOCYTES # (AUTO) 0.9 10^3/uL (0.0-1.0); MONOCYTES % (AUTO) 7.6 %; NEUTROPHILS # (AUTO) 8.1 10^3/uL (1.5-6.6); NEUTROPHILS % (AUTO) 69.3 %; PLT - PLATELET COUNT 168 10^3/uL (130-450); RED BLOOD COUNT 3.42 10^6/uL (4.20-5.40); RED CELL DISTRIBUTION WIDTH 13.3 % (12.0-15.0); WHITE BLOOD COUNT 11.7 x10^3/uL (4.8-10.8)
[2020-03-09 08:14] LABS: CALCIUM 8.8 mg/dL (8.5-10.3); CREATININE 0.8 mg/dL (0.4-1.0)
[2020-03-09] MEDS ORDERED: APIXABAN 5 MG TABLET PO SCH (09:00)
[2020-03-09] MEDS: polyethylene glycoL 3350 17 GM PACKET PO SCH (09:27)
[2020-03-09] MEDS: cephALEXin 250 MG CAPSULE PO SCH (09:27)
[2020-03-09] MEDS: levETIRAcetam 250 MG TABLET PO SCH (09:27)
[2020-03-09] MEDS: SODIUM CHLORIDE FLUSH 0.9% 10 ML SYRINGE IVP SCH (09:27)
--- NOTE | 2020-03-09 11:31 | Discharge Plan ---
Discharge Plan Problem Reviewed?: Yes Disposition: Home, Self Care Condition: Stable Prescriptions: Apixaban [Eliquis] 5 mg PO BID #30 tablet Apixaban [Eliquis] 10 mg PO BID #28 tab.ds.pk Diet: Regular Activity Restrictions: Activity as Tolerated Shower Restrictions: No (fall precaution) Instruction Topics: Apixaban oral tablets, DVT Health Concerns: DVT Plan of Treatment: you were found to have extensive DVT on your right lower extremity. You are hemodynamically stable, no tenderness, erythema or pain on your right leg. advise you discuss with your OBGYN for your control medication Lillow-28, because control medication plus your long time flight trip all are the risk to cause your DVT. According to your family history, advise you discuss with your PCP for anticoagulation study as out-patient. you are prescribed first 7 days of 10 mg Eliquis bid, then switch to 5mg eliquis bid, totally at least 6 months treatment regimen. advise you followup your PCP to continue the management. you may Resume your other home meds as the schedule. Care Goals: stabilization and improvement/resolve of your medical conditions. Assessment: discussed with you the care plan, you understood and agreed. Additional Instructions or Follow Up instructions: You may followup with your PCP in one to two weeks. Should your symptoms return or worsen, you may present ER or call 911 for help. No Smoking: If you smoke, Please STOP! Call for help.
--- NOTE | 2020-03-09 11:46 | DISCHARGE SUMMARY ---
Discharge Summary Admit Date: 03/06/20 Discharge Date: 03/09/20 Discharging Provider: Darrin Beard Primary Care Provider: medical social worker help to setup PCP Condition at Discharge: Stable Discharge Disposition: 01 Home, Self Care Discharge Facility Name: home - DIAGNOSES Discharge Diagnoses with Status of Each Condition: (1) Deep vein thrombosis (DVT) of right lower extremity stable, she denies cough, shortness of breathing or respiratory distress. she is not hypoxic or tachycardic. Her troponin is also normal. she denies right lower extremity calf pain or hip pain. there is no erythema or tenderness or swelling at right calf. pt is prescribed first 7 day of oral 10 mg Eliquis bid and following up 5 mg eliquis bid, advise she followup with her PCP for further management. medical social worker arranged her PCP for her. Pain control with Tylenol and oxycodone as needed. pt is prescribed oxycodone as well. Advised the patient may follow-up with her PCP to have hypercoagulation laboratory work-up as needed. (2) Epilepsy Stable, continued her home dose of Keppra. (3) Pyelonephritis stable, pt was diagnosis of pyelonephritis before this time of admission in the hospital. advise her finish her home Keflex regimens. - [facility] History of Present Illness: refer from Dr. Avila's HPI on 03/06/2020 This is a 24-year-old female with a past medical history significant for epilepsy on Keppra who presents today complaining of right leg pain and swelling. She noted that this morning she developed right hip pain and noticed that her leg progressively became more swollen and painful throughout the day. She is visiting from [place] and flew here this past . She did connect in [place]. She reports no numbness or tingling in her lower extremity. She denies any chest pain, dyspnea, palpitations. She reports no prior history of DVT. She believes her grandfather had a DVT but does not believe her parents have. She is on on OCP, Lillow, for control which she has been taking for numerous years now. She is a non-smoker. She reports no prior history of DVT. She did have ACL reconstruction about 3 years ago in her right knee. She reports being diagnosed with pyelonephritis 1 week ago and she is currently taking Keflex and she has 1 more week of treatment. In the emerge department, she was found to be afebrile temperature of 36.7 C. Her heart rate was 64. Her blood pressure was 130/85. She was not tachypneic and saturating 100% on room air. He underwent a Doppler of the right lower extr emity which showed extensive DVT from the right iliac distally. The emergency department provider did speak with intervention radiology who recommended 48 hours of heparin and if there is no improvement then to transfer to higher level of care for further management. Given the above findings, medicine was consulted for admission. - HOSPITAL COURSE Hospital Course: Patient was admitted for right hip pain and noticed that her leg progressively became more swollen and painful throughout the day. Patient was found to have extensive DVT in his right lower extremity. Recommendation from radiologist, patient was treated with heparin drip for 48 hours. After treated 48 hours heparin drip, patient has no more pain in his right hip and right lower extremit y, his right lower extremity has no erythema or tenderness or swollen or pain. Patient was prescribed for first 7-day of Eliquis 10 mg twice daily then patient is prescribed 5 mg Eliquis twice daily, advised follow-up her PCP for further management, and for anticoagulation study as needed.Patient was discharged as stable condition. - ALLERGIES Allergies/Adverse Reactions: Allergies Allergy/AdvReac Type Severity Reaction Status Date / Time No Known Drug Allergies Allergy Verified 03/06/20 21:02 - MEDICATIONS Home Medications: Ambulatory Orders Medication Instructions Recorded Confirmed Cephalexin [Keflex] 500 mg PO BID 03/07/20 03/07/20 Levetiracetam [Keppra] 500 mg PO DAILY 03/07/20 03/07/20 Levetiracetam [Keppra] 750 mg PO QPM 03/07/20 03/07/20 Levonorgestrel-Ethin Estradiol 1 each PO DAILY 03/07/20 03/07/20 [Lillow-28 Tablet] Apixaban [Eliquis] 5 mg PO BID #30 tablet 03/09/20 Apixaban [Eliquis] 10 mg PO BID #28 tab.ds.pk 03/09/20 oxyCODONE [Roxicodone] 5 mg PO Q4HR PRN #20 tablet 03/09/20 - PHYSICAL EXAM AT DISCHARGE General Appearance: positive: No acute distress, Alert. negative: Lethargic Eyes Bilateral: positive: Normal inspection, PERRL, No lid inflammation ENT: positive: ENT inspection nml, Pharynx nml, No signs of dehydration. negative: Purulent nasal drainage Neck: positive: Nml inspection, Thyroid nml, No JVD, Trachea midline. negative: Thyromegaly, Stiff neck, Tracheal deviation Respiratory: positive: Chest non-tender, No respiratory distress, Breath sounds nml. negative: Wheezes, Rales, Rhonchi Cardiovascular: positive: Regular rate & rhythm, No murmur, No gallop. neg ative: Irregularly irregular, Tachycardia, Bradycardia, Systolic murmur, Diastolic murmur Peripheral Pulses: positive: 2+ Abdomen: positive: Non-tender, No organomegaly, Nml bowel sounds, No distention. negative: Tenderness, Guarding, Rebound Back: positive: Nml inspection. negative: CVA tenderness (R), CVA tenderness (L) Skin: positive: Color nml, No rash, Warm, Dry. negative: Cyanosis, Diaphoresis, Pallor Extremities: positive: Non-tender, Full ROM, Nml appearance, No pedal edema. negative: Calf tenderness, Joint swelling, Neetu's sign/cords Neurologic/Psychiatric: positive: Oriented x3, Motor nml, Sensation nml, Mood/affect nml. negative: Weakness, Sensory loss, Facial droop, Slurred/abnml speech, Depressed mood/affect - LABS Result Diagrams: 03/09/20 05:15 03/09/20 05:15 - DIAGNOSTIC IMAGING Diagnostic Imaging Results Comments: Ultrasound showed patient has extensively DVT in the right lower extremity - SEPSIS Current Stage of Sepsis: Ruled out - FOLLOW UP Follow Up: you were found to have extensive DVT on your right lower extremity. You are hemodynamically stable, no tenderness, erythema or pain on your right leg. advise you discuss with your OBGYN for your control medication Lillow-28, because control medication plus your long time flight trip all are the risk to cause your DVT. According to your family history, advise you discuss with your PCP for anticoagulation study as out-patient. you are prescribed first 7 days of 10 mg Eliquis bid, then switch to 5mg eliquis bid, totally at least 6 months treatment regimen. advise you followup your PCP to continue the management. you may Resume your other home meds as the schedule. You may followup with your PCP in one to two weeks. Should your symptoms return or worsen, you may present ER or call 911 for help. - TIME SPENT Time Spent in Discharge (Minutes): 30
[2020-03-09 16:43] VITALS: BP 103/62
== END 2020-03-09 16:55 | disposition home or self-care (01) | DRG 300 ==
LOC: ED 20:51 → MS2 23:28
PROVIDERS: ADMIT Internal Medicine; ATTEND Nurse Practitioner Gerontology
DX: I82.421 Acute embolism and thrombosis of right iliac vein (principal); N12 Tubulo-interstitial nephritis, not specified as acute or chronic; I82.441 Acute embolism and thrombosis of right tibial vein; G40.909 Epilepsy, unspecified, not intractable, without status epilepticus; Z79.2 Long term (current) use of antibiotics; Z79.3 Long term (current) use of hormonal contraceptives; Z79.899 Other long term (current) drug therapy; Z82.49 Family history of ischemic heart disease and other diseases of the circulatory system
CPT/HCPCS: 36415; 71045; 80048; 80053; 80177; 81003; 81025; 83690; 83735; 84484; 85025; 85520; 85610; 85730; 93005; 93971; 99283; 99285; A9270; 81001; 85027; 87086